=== PATIENT | male | born 1985 | race Two or more races ===

== ENCOUNTER 2024-06-29 06:41 | Emergency (ER) | payer OTHER, SELFPAY ==
[2024-06-29 06:42] VITALS: PULSE 70; RESP 20; O2SAT 98; BMI 33.2
[2024-06-29 06:50] VITALS: BP 132/89; PULSE 71; RESP 18; TEMP 36.5; O2SAT 96
--- NOTE | 2024-06-29 07:09 | XR_ITS ---
Examination: CT abdomen and pelvis without contrast. Coronal 3-D reconstructions. Sagittal 2-D reconstructions. Date and time of exam:June 29, 2024 0734 hours INDICATIONS: Onset bilateral flank pain with hematuria beginning 15 days ago CTDI: vol (mGy): 8.65 DLP: (mGycm): 503 Technique: Axial images of the abdomen have been obtained, 3 mm slice thickness Intravenous contrast material has not been administered. Low dose protocols were performed. One or more of the following dose reduction techniques were used; automated exposure control, adjustment of the mA and/or KV according to patient size, use of iterative reconstruction technique. Findings: No focal liver or splenic lesions No gallstones No pancreatic or adrenal mass Mild right hydronephrosis secondary to 4.6 mm proximal right ureteral calculus Normal appendix Aorta normal size No bowel obstruction or diverticulitis No bladder mass or bladder is contracted Intact osseous structures IMPRESSION: Mild right hydronephrosis secondary to 4.6 mm proximal right ureteral calculus
--- NOTE | 2024-06-29 07:10 | PD.EDRME ---
Rapid Medical Screening Exam RME Arrival date/time: 06/29/24 06:41 This is a 38-year-old male presents to the emergency department with complaints of bilateral flank pain. Recently treated with antibiotics for possible UTI. I have greeted and performed a focused initial assessment of this patient. Initial appropriate labs ordered at this time. A comprehensive ED assessment and evaluation of the patient and analysis of all test and completion of medical decision making process will be conducted by additional ED provider. Chief Complaint: Back Pain/Injury Time Seen by Provider: 06/29/24 06:49 Vital signs: Vital Signs Temperature 97.7 F 06/29/24 06:50 Pulse Rate 71 06/29/24 06:50 Respiratory Rate 18 06/29/24 06:50 Blood Pressure 132/89 H 06/29/24 06:50 Pulse Oximetry (%) 96 06/29/24 06:50 Oxygen Delivery Method Room Air 06/29/24 06:50
--- NOTE | 2024-06-29 07:20 | PD.EDABDPN ---
ED Abdominal Pain RME/HPI General Chief Complaint: Back Pain/Injury Stated complaint: RIGHT SIDED FLANK/BACK PAIN Time seen by provider: 06/29/24 06:49 Arrival date/time: 06/29/24 06:41 RME / HPI RME / HPI narrative: 06/29/24 06:41 This is a 38-year-old male unknown case of any medical condition presented to the ED due to sharp flank pain on the right side started this morning awaking her from sleep. Patient reported that it is associated with nausea and vomiting and bloody urine. Patient reported also he had similar pain on the other side. Of note recently the patient was treated for UTI 15 days ago. Patient denied any fever or chills and denied any other symptoms. Related Data Home Medications ?Medication ?Instructions ?Recorded ?Confirmed melatonin 3 mg tablet 3 mg PO HS #0 tabs 08/03/16 04/15/18 Previous Rx's ?Medication ?Instructions ?Recorded diphenhydramine HCl 25 mg capsule 25 mg PO TID #14 caps 04/15/18 (Benadryl) ibuprofen 400 mg tablet 400 mg PO TID PRN pain 5 days #15 06/29/24 tabs tamsulosin 0.4 mg capsule (Flomax) 0.4 mg PO QDAY 1 week #7 caps 06/29/24 Allergies Allergy/AdvReac Type Severity Reaction Status Date / Time No Known Allergies Allergy Verified 06/29/24 06:44 ED Exam Narrative Physical exam: GEN: AOx3, in agonizing pain, able to speak full sentences HEENT: NC/AC, PERRLA, oral mucosa moist, neck supple CVS: RRR, S1-S2 present, no murmurs appreciated RESP: CTAB GI: Soft with spontaneous guarding on the right side.,non distended, non tender, NBS MSK: able to move all 4 limbs, no lower extremity edema SKIN: warm and dry 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 Course Quality Measures none Orders Category Date Time Status Insert IV NOW Care 06/29/24 07:[address] abdomen pelvis wo con Stat Exams 06/29/24 07:09 Completed CBC Stat Lab 06/29/24 07:24 Completed CMP [Comprehensive Metabolic Panel] Stat Lab 06/29/24 07:24 Completed Lipase Stat Lab 06/29/24 07:24 Completed Urinalysis Stat Lab 06/29/24 07:12 Completed Urine Culture Stat Lab 06/29/24 07:12 Received Ketorolac Inj [Toradol Inj] Med 06/29/24 07:09 Discontinued 30 mg IVP X1 ONE Morphine Inj Med 06/29/24 07:24 Discontinued 2 mg IVP X1 ONE SODIUM CHLORIDE 0.9% @ Wide Open(1,000ml) Med 06/29/24 09:01 Ordered Sodium Chloride 0.9% 1000 ml [Ns] 1,000 ml IV 999 mls/hr Vital Signs Vital signs: Vital Signs Temperature 97.7 F 06/29/24 06:50 Pulse Rate 71 06/29/24 06:50 Respiratory Rate 18 06/29/24 06:50 Blood Pressure 132/89 H 06/29/24 06:50 Pulse Oximetry (%) 96 06/29/24 06:50 Oxygen Delivery Method Room Air 06/29/24 06:50 Abdominal Pain MDM MDM Narrative MDM Narrative:: On evaluation patient was found to have normal vital signs, CT scan showed 4.6 right sided ureteral stone at the proximal part with mild hydronephrosis. WBC of 11.6, however patient denied any fever or chills. Urine analysis showed 1660 RBCs but no blood or bacteria pain was controlled with ketorolac 30 mg. Will discharge the patient on Motrin, Flomax, and increased fluid oral intake and asked the patient to follow-up in outpatient settings with a urologist as we do not have urologist on-call. Patient data External records reviewed:: [facility] previous records Clinical information provided by:: patient Social determinants that could affect healthcare access:: none Patient has the following chronic illnesses:: None How is presenting disease/condition affected by chronic disease/condition?: no chronic disease Evaluation data The following diagnostics were reviewed and interpreted by me:: lab results, radiology exam(s) and EKG tracing(s) Lab and/or radiology exams considered but not ordered:: None Interpretation Summary: Right ureteral stones, with mild hydronephrosis Medications / Prescriptions Medications or Prescriptions considered but not ordered:: None Medication administrations:: Medication Administration History Discontinued Medications Ketorolac Tromethamine (Ketorolac Inj 30 Mg/Ml Vial) 30 mg IVP X1 ONE Stop: 06/29/24 07:10 Last Admin: 06/29/24 08:10 Dose: 30 mg Documented By: DEANNA Morphine Sulfate (Morphine Sulf Inj 10 Mg/Ml Vial) 2 mg IVP X1 ONE Stop: 06/29/24 07:25 As above F given Consultations Consultation(s) initiated? (list below): No Diagnosis Differential diagnosis abdominal pain: calculus of kidney Most likely diagnosis given after review of the tests above:: Right ureteral stones Admission Indicated Admission indicated?: not indicated Admission Request Was there a request for admission?: No Disposition Plan Disposition Plan: Discharge Discharge Attestation Discharge Attestation: The patient and all family members were given an opportunity to ask questions and understood the discharge instructions. Discharge instructions specifically effects, indications for sooner follow up or return to the emergency department, and the expected course of current diagnosis. Patient condition: Stable Discharge Plan Plan Patient Disposition: HOME (Self Care) Patient condition on transfer: Stable Health Concerns: Follow-up with your primary care physician within 3 days of discharge for referral to urologist for definitive treatment Use ibuprofen as needed 3 times a day for pain If you develop fever, chills please return to the emergency as soon as possible Prescriptions/Referrals Prescriptions/Med Rec: New tamsulosin [Flomax] 0.4 mg capsule 0.4 mg PO QDAY 7 Days Qty: 7 0RF ibuprofen 400 mg tablet 400 mg PO TID PRN (Reason: pain) 5 Days Qty: 15 0RF No Action melatonin 3 MG tablet 3 mg PO HS Qty: 0 diphenhydramine HCl [Benadryl] 25 mg capsule 25 mg PO TID Qty: 14 0RF Rx Instructions: take one tab and then in one half hour may repeat with another 25 mg po Ref[facility]: Benji Dos Santos[facility] [Primary Care Provider] - In 1 week Problem List Clinical Impression: Renal colic Patient/Caregiver Discharge Instructions Education Materials: Anatomy of the Male Urinary Tract, ED Kidney Stone w/ Colic Print Language: French Stand Alone Forms: Kell Award Info., Patient Portal Info Letter
[2024-06-29 07:26] LABS: Collection Type, Urine Clean Catch; Squamous Epithelial Cell,Urine 0 /hpf (0-5)
[2024-06-29 07:35] LABS: Basophils # (Auto) 0.1 Thou/mm3 (0.0-0.2); Basophils % (Auto) 0 % (0-2.5); Eosinophils # (Auto) 0.1 Thou/mm3 (0.0-0.5); Eosinophils % (Auto) 1 % (0-10); Hematocrit 37.4 % (41.0-53.0); Hemoglobin 12.7 g/dL (13.5-16.0); Immature Granulocytes % (Auto) 1 % (0-0); Immature Granulocytes Auto 0.09 Thou/mm3 (0.00-0.00); Lymphocytes # (Auto) 1.5 Thou/mm3 (1.0-4.8); Lymphocytes % (Auto) 13 % (10-50); Mean Corpuscular Hemoglobin 29.4 pg (25.0-35.0); Mean Corpuscular Volume 87 fL (80-100); Monocytes # (Auto) 0.8 Thou/mm3 (0.0-0.8); Monocytes % (Auto) 7 % (0-12); Neutrophils # (Auto) 8.9 Thou/mm3 (1.8-7.7); Neutrophils % (Auto) 78 % (37-80); Nucleated Red Blood Cell % 0 /100 WBC (0); Platelet Count 240 Thou/mm3 (140-440); Red Blood Count 4.32 Miln/mm3 (4.50-5.90); White Blood Count 11.4 Thou/mm3 (3.8-10.6)
[2024-06-29 07:44] LABS: Bilirubin,Urine Negative (Negative); Blood,Urine 3+ (Negative); Color,Urine Yellow (Lt Yel-Yel); Glucose, Urine Negative (Negative); Ketones,Urine Negative (Negative); Leukocyte Esterase,Urine Negative (Negative); Nitrite,Urine Negative (Negative); Protein,Urine 1+ (Neg - Trace); RBC,Urine 1660 /hpf (0-3); Specific Gravity,Urine 1.031 (1.001-1.035); Urobilinogen,Urine Negative mg/dL (0.0-1.0); WBC,Urine 1 /hpf (0-5)
[2024-06-29 07:47] LABS: Alanine Aminotransferase 21 U/L (10-49); Albumin, Serum 4.4 gm/dL (3.5-5.0); Albumin/Globulin Ratio 1.6 (1.2-2.2); Alkaline Phosphatase 91 U/L (46-116); Anion Gap 6 (7-16); Aspartate Amino Transferase 19 U/L (0-34); BUN/Creatinine Ratio 19 Ratio (12-20); Bilirubin,Total 0.3 mg/dL (0.3-1.2); Blood Urea Nitrogen 17 mg/dL (9-23); Calcium 9.1 mg/dL (8.3-10.6); Calcium (Corrected) 9.1 mg/dL (8.5-10.1); Carbon Dioxide 27.4 mMol/L (20.0-31.0); Chloride 106 mMol/L (98-107); Creatinine (Component) 0.9 mg/dL (0.6-1.3); Globulin 2.8 gm/dL (2.3-3.5); Glucose 127 mg/dL (74-106); Lipase 32 U/L (12-53); Osmolality,Calculated 281 (275-295); Potassium 3.5 mMol/L (3.4-5.1); Sodium 139 mMol/L (136-145); Total Protein 7.2 gm/dL (5.7-8.2); eGFR > 60 See Note
[2024-06-29 08:04] LABS: Clarity,Urine Hazy (Clear/Hazy)
[2024-06-29] MEDS: KETOROLAC INJ 30 MG/ML VIAL IVP (08:10)
[2024-06-29 08:35] VITALS: BP 141/99; PULSE 63; RESP 20; TEMP 36.6; O2SAT 99
[2024-06-29 08:49] VITALS: BP 141/99; PULSE 63; RESP 16; TEMP 36.6; O2SAT 99
[2024-06-29 09:55] VITALS: BP 117/78; PULSE 67; RESP 14; TEMP 36.6; O2SAT 100
[2024-06-29] MEDS: SODIUM CHLORIDE 0.9% 1000 ML 1,000 ML 999 ML IV (10:29)
[2024-06-29] MEDS: IBUPROFEN TAB 400 MG TABLET PO (10:30)
--- NOTE | 2024-06-29 10:33 | PC.NURSE ---
Pt refused morphine. Pt in recovery for adiction,
== END 2024-06-29 10:40 | disposition home or self-care (01) ==
PROVIDERS: Nurse Practitioner Primary Care; Emergency Provider Emergency Medicine; PCP Family Medicine
DX: N13.2 Hydronephrosis with renal and ureteral calculous obstruction (principal)
CPT/HCPCS: 36415; 74176; 80053; 81001; 83690; 85025; 87086; 99284; J1885; J7030; A9270

== ENCOUNTER → 2024-09-21 | Outpatient (CLI) | payer OTHER, SELFPAY ==
--- NOTE | 2024-09-21 10:45 | XR_ITS ---
Examination: Abdomen AP single view Technique: AP portable supine abdomen, single view Exam date and time: September 21, 2024 11:20 AM INDICATIONS: Right flank pain 3 months FINDINGS: Moderate stool overlying the kidneys. No renal or ureteral calculi noted IMPRESSION: No renal or ureteral calculi noted
== END | disposition home or self-care (01) ==
PROVIDERS: PCP Nurse Practitioner Family; Referring Provider Surgery; Visit Provider Surgery
DX: N20.1 Calculus of ureter (principal)
CPT/HCPCS: 74018

== ENCOUNTER → 2024-12-26 | Outpatient (CLI) | payer OTHER, SELFPAY ==
--- NOTE | 2024-12-26 08:06 | XR_ITS ---
Examination: Abdomen AP single view Technique: AP portable supine abdomen, single view Exam date and time: December 26, 2024 0814 hours INDICATIONS: History flank pain kidney stones FINDINGS: Abundant stool overlies the right kidney No renal or ureteral calculi IMPRESSION: No renal or ureteral calculi
== END | disposition home or self-care (01) ==
LOC: CDIM 07:15
PROVIDERS: PCP Nurse Practitioner Family; Referring Provider Surgery; Visit Provider Surgery
DX: R10.9 Unspecified abdominal pain (principal)
CPT/HCPCS: 74018

== ENCOUNTER 2024-12-30 20:20 | Emergency (ER) | payer OTHER, SELFPAY ==
[2024-12-30 20:22] VITALS: PULSE 59; RESP 18; O2SAT 98; BMI 32.1
[2024-12-30 20:33] VITALS: BP 133/88; PULSE 87; RESP 20; TEMP 37.1; O2SAT 99
--- NOTE | 2024-12-30 20:53 | XR_ITS ---
Examination: CT abdomen and pelvis without contrast. Coronal 3-D reconstructions. Sagittal 2-D reconstructions. Date and time of exam:December 30, 2024 2138 hours Comparison June 29, 2024 INDICATIONS: Flank pain beginning 3 hours ago history kidney stones CTDI: vol (mGy): 10.7 DLP: (mGycm): 616 Technique: Axial images of the abdomen have been obtained, 3 mm slice thickness Intravenous contrast material has not been administered. Low dose protocols were performed. One or more of the following dose reduction techniques were used; automated exposure control, adjustment of the mA and/or KV according to patient size, use of iterative reconstruction technique. Findings: No pancreatic or adrenal mass [id number] bilateral renal parenchymal scar formation Moderate right hydronephrosis secondary to 6 mm distal right ureteral calculus Normal appendix No bowel obstruction No diverticulitis No bladder mass or bladder calculi IMPRESSION: Moderate right hydronephrosis secondary to 6 mm distal right ureteral calculus
--- NOTE | 2024-12-30 20:54 | PD.EDRME ---
Rapid Medical Screening Exam RME Arrival date/time: 12/30/24 20:20 Chief Complaint: Back Pain/Injury Time Seen by Provider: 12/30/24 20:48 Vital signs: Vital Signs Temperature 98.8 F 12/30/24 20:33 Pulse Rate 87 12/30/24 20:33 Respiratory Rate 20 12/30/24 20:33 Blood Pressure 133/88 H 12/30/24 20:33 Pulse Oximetry (%) 99 12/30/24 20:33 Oxygen Delivery Method Room Air 12/30/24 20:33 RME Narrative: Right flank pain, nausea/vomiting today. History of kidney stones
--- NOTE | 2024-12-30 20:56 | EDNOTE_ITS ---
ED Back Injury Pain RME/HPI General Chief Complaint: Back Pain/Injury Stated Complaint: KIDNEY PAIN Time Seen by Provider: 12/30/24 20:48 Source: patient, RN notes reviewed and old records reviewed Arrival date/time: 12/30/24 20:20 Mode of arrival: ambulatory Limitations: no limitations RME / HPI RME / HPI Narrative: 39yom presents to ED for sudden onset of right flank pain radiating to RLQ that started today. History of kidney stones. Patient c/o nausea and vomiting. No fever, dysuria or hematuria reported. 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 Related Data Home Medications ?Medication ?Instructions ?Recorded ?Confirmed melatonin 3 mg tablet 3 mg PO HS #0 tabs 08/03/16 04/15/18 Previous Rx's ?Medication ?Instructions ?Recorded diphenhydramine HCl 25 mg capsule 25 mg PO TID #14 cap s 04/15/18 (Benadryl) ibuprofen 600 mg tablet 600 mg PO Q6H PRN pain #30 t abs 12/31/24 ondansetron 4 mg disintegrating 4 mg PO Q6H PRN nausea and 12/31/24 tablet vomiting #10 tabs tamsulosin 0.4 mg capsule (Flomax) 0.4 mg PO QDAY 10 d ays #10 caps 12/31/24 Allergies Allergy/AdvReac Type Severity Reaction Status Date / Time No Known Allergies Allergy Verified 06/29/24 06:44 Review of Systems Review of Systems Systems Reviewed: All systems reviewed, normal except as documented Constitutional Constitutional: Denies chills and Denies fever(s) Gastrointestinal Gastrointestinal: Reports abdominal pain, Denies loose stools, Reports nausea and Reports vomiting Genitourinary Genitourinary: Denies dysuria, Reports flank pain and Denies hematuria Past Medical History Past Medical History GASTROINTESTINAL: Positive Obesity GENITOURINARY: Positive Kidney Stones Social History SMOKING STATUS: Never smoker SUBSTANCE USE: does not use ALCOHOL: Never ED Exam General Limitations: Present no limitations General appearance: Present alert, in no apparent distress and other (Appears uncomfortable 2/2 pain) Head Head exam: Present atraumatic and normocephalic Eye Eye exam: Present normal appearance, PERRL and EOMI ENT ENT exam: Present normal exam and mucous membranes moist Neck Neck exam: Present normal inspection and full ROM Chest Chest inspection: Present normal inspection and symmetric chest wall rise Respiratory Respiratory exam: Present normal lung sounds bilaterally; Absent respiratory distress Cardiovascular Cardiovascular exam: Present regular rate and normal rhythm Abdominal Exam Abdominal exam: Present soft; Absent distention, tenderness, guarding or rebound Extremities Exam Extremities exam: Present normal inspection and full ROM Back Exam Back exam: Present CVA tenderness (R) Neurological Exam Neurological exam: Present alert and oriented X3 Psychiatric Psychiatric exam: Present normal affect and normal mood Skin Skin exam: Present warm, dry, intact and normal color Course Quality Measures none Orders Category Date Time Status CT abdomen pelvis wo con Stat Exams 12/30/24 20:53 Completed CBC Stat Lab 12/30/24 21:02 Completed CMP [Comprehensive Metabolic Panel] Stat Lab 12/30/24 21:02 Completed Lipase Stat Lab 12/30/24 21:02 Completed UA [Urinalysis] Stat Lab 12/30/24 22:05 Completed HYDROcodone/APAP 10/325 [Bittinger 10/325] Med 12/31/24 00:06 Discontinued 1 tab PO X1 ONE Ketorolac Inj [Toradol Inj] Med 12/30/24 20:53 Discontinued 30 mg IM X1 ONE Ondansetron Odt [Zofran Odt] Med 12/30/24 20:53 Discontinued 4 mg PO X1 ONE Vital Signs Vital signs: Vital Signs Temperature 98.8 F 12/30/24 20:33 Pulse Rate 87 12/30/24 20:33 Respiratory Rate 20 12/30/24 20:33 Blood Pressure 133/88 H 12/30/24 20:33 Pulse Oximetry (%) 99 12/30/24 20:33 Oxygen Delivery Method Room Air 12/30/24 20:33 Back Pain / Injury MDM Narrative MDM Narrative:: 39yom presents to ED for sudden onset of right flank pain radiating to RLQ that started today. History of kidney stones. Patient c/o nausea and vomiting. No fever, dysuria or hematuria reported. 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 Patient reassessed. Symptoms improved significantly after meds administered in ED. Tolerating po. 6mm right ureteral stone on CT. Encouraged adequate fluids, symptomatic treatment prn. Stable for discharge, RTED precautions given. Patient data External records reviewed:: [facility] previous records (06/29/24 ED visit for renal colic) Clinical information provided by:: patient Social determinants that could affect healthcare access:: none Patient has the following chronic illnesses:: kidney stones How is presenting disease/condition affected by chronic disease/condition?: caused by Evaluation data The following diagnostics were reviewed and interpreted by me:: lab results and radiology exam(s) Lab and/or radiology exams considered but not ordered:: none Interpretation Summary: Mild leukocytosis, WBC 13.9 UA + blood Creatinine wnl CT abd/pelvis: 6mm distal R ureteral stone Medications / Prescriptions Medications or Prescriptions considered but not ordered:: No antibiotics recommended at this time Medication administrations:: Medication Administration History Discontinued Medications Hydrocodone Bitart/Acetaminophen (Hydrocodone/Apap 10/325 Tab) 1 tab PO X1 ONE Stop: 12/31/24 00:07 Last Admin: 12/31/24 00:12 Dose: Not Given Documented By: LAILA Non-Admin Reason: Patient Refused Ketorolac Tromethamine (Ketorolac Inj 60 Mg/2 Ml Vial) 30 mg IM X1 ONE Stop: 12/30/24 20:54 Last Admin: 12/30/24 21:06 Dose: 30 mg Documented By: Ondansetron HCl (Ondansetron Odt 4 Mg Tabrap) 4 mg PO X1 ONE; Protocol Stop: 12/30/24 20:54 Last Admin: 12/30/24 21:05 Dose: 4 mg Documented By: Above medications administered in ED Consultations Consultation(s) initiated? (list below): No Diagnosis Differential diagnosis back pain/injury: other (Renal colic, kidney stone, UTI, pyelonephritis, lumbar strain, back pain) Most likely diagnosis given after review of the tests above:: Ureteral stone, renal colic Admission Indicated Admission indicated?: not indicated Admission Request Was there a request for admission?: No Disposition Plan Disposition Plan: Discharge Discharge Attestation Discharge Attestation: The patient and all family members were given an opportunity to ask questions and understood the discharge instructions. Discharge instructions specifically effects, indications for sooner follow up or return to the emergency department, and the expected course of current diagnosis. Patient condition: Stable Discharge Plan Plan Patient Disposition: HOME (Self Care) Patient condition on transfer: Stable Prescriptions/Referrals Prescriptions/Med Rec: New ondansetron 4 mg tablet,disintegrating 4 mg PO Q6H PRN (Reason: nausea and vomiting) Qty: 10 0RF tamsulosin [Flomax] 0.4 mg capsule 0.4 mg PO QDAY 10 Days Qty: 10 0RF ibuprofen 600 mg tablet 600 mg PO Q6H PRN (Reason: pain) Qty: 30 0RF No Action melatonin 3 MG tablet 3 mg PO HS Qty: 0 diphenhydramine HCl [Benadryl] 25 mg capsule 25 mg PO TID Qty: 14 0RF Rx Instructions: take one tab and then in one half hour may repeat with another 25 mg po Referrals: Felipa Graff [Primary Care Provider] - In 1 week Problem List Clinical Impression: Right ureteral stone, Renal colic on right side Patient/Caregiver Discharge Instructions Education Materials: ED Kidney Stone w/ Colic Print Language: Nepalese Stand Alone Forms: Kell Award Info., Work/School Release, Patient Portal Info Letter PA/DESK PENS 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
[2024-12-30] MEDS: ONDANSETRON ODT 4 MG TABRAP PO (21:05)
[2024-12-30] MEDS: KETOROLAC INJ 60 MG/2 ML VIAL 30 MG IM (21:06)
[2024-12-30 21:13] LABS: Basophils # (Auto) 0.1 Thou/mm3 (0.0-0.2); Basophils % (Auto) 0 % (0-2.5); Eosinophils % (Auto) 0 % (0-10); Hematocrit 37.7 % (41.0-53.0); Immature Granulocytes % (Auto) 1 % (0-0); Immature Granulocytes Auto 0.11 Thou/mm3 (0.00-0.00); Lymphocytes # (Auto) 1.1 Thou/mm3 (1.0-4.8); Lymphocytes % (Auto) 8 % (10-50); Mean Corpuscular HGB Conc 34.5 g/dl (31.0-37.0); Mean Corpuscular Hemoglobin 29.7 pg (25.0-35.0); Mean Corpuscular Volume 86 fL (80-100); Monocytes # (Auto) 0.7 Thou/mm3 (0.0-0.8); Monocytes % (Auto) 5 % (0-12); Neutrophils # (Auto) 11.9 Thou/mm3 (1.8-7.7); Neutrophils % (Auto) 86 % (37-80); Nucleated Red Blood Cell % 0 /100 WBC (0); Platelet Count 216 Thou/mm3 (140-440); RDW Standard Deviation 41.7 fL (35.1-43.9); Red Blood Count 4.37 Miln/mm3 (4.50-5.90); White Blood Count 13.9 Thou/mm3 (3.8-10.6)
[2024-12-30 21:35] LABS: Alanine Aminotransferase 26 U/L (10-49); Albumin, Serum 4.4 gm/dL (3.5-5.0); Albumin/Globulin Ratio 1.4 (1.2-2.2); Alkaline Phosphatase 83 U/L (46-116); Anion Gap 7 (7-16); Aspartate Amino Transferase 25 U/L (0-34); BUN/Creatinine Ratio 20 Ratio (12-20); Bilirubin,Total 0.3 mg/dL (0.3-1.2); Blood Urea Nitrogen 20 mg/dL (9-23); Calcium 8.9 mg/dL (8.3-10.6); Calcium (Corrected) 8.9 mg/dL (8.5-10.1); Carbon Dioxide 29.7 mMol/L (20.0-31.0); Chloride 105 mMol/L (98-107); Estimated Creatinine Clearance 111.3 mL/min (>60); Globulin 3.1 gm/dL (2.3-3.5); Glucose 114 mg/dL (74-106); Lipase 29 U/L (12-53); Osmolality,Calculated 286 (275-295); Potassium 4.2 mMol/L (3.4-5.1); Sodium 142 mMol/L (136-145); Total Protein 7.5 gm/dL (5.7-8.2); eGFR > 60 See Note
[2024-12-30 22:33] LABS: Collection Type, Urine Clean Catch; Squamous Epithelial Cell,Urine 0 /hpf (0-5)
[2024-12-30 22:55] LABS: Amorphous Crystals,Urine Present (Absent); Bilirubin,Urine Negative (Negative); Blood,Urine 2+ (Negative); Clarity,Urine Clear (Clear/Hazy); Color,Urine Yellow (Lt Yel-Yel); Glucose, Urine Negative (Negative); Ketones,Urine Trace (Negative); Leukocyte Esterase,Urine Positive (Negative); Nitrite,Urine Negative (Negative); PH,Urine 7.5 (5.0-7.0); Protein,Urine 1+ (Neg - Trace); RBC,Urine 97 /hpf (0-3); Specific Gravity,Urine 1.038 (1.001-1.035); WBC,Urine 5 /hpf (0-5)
== END 2024-12-31 00:29 | disposition home or self-care (01) ==
PROVIDERS: Physician Assistant; Emergency Provider Emergency Medicine; PCP Nurse Practitioner Family
DX: N20.2 Calculus of kidney with calculus of ureter (principal)
CPT/HCPCS: 36415; 74176; 80053; 81001; 83690; 85025; 96372; 99284; J1885; Q0162

== ENCOUNTER 2025-04-27 19:06 | Emergency (ER) | payer OTHER, SELFPAY ==
[2025-04-27 19:07] VITALS: BMI 32.6
[2025-04-27 19:35] VITALS: BP 125/86; PULSE 66; RESP 16; TEMP 37; O2SAT 99
--- NOTE | 2025-04-27 19:45 | XR_ITS ---
Examination: CT brain head without contrast. 2-D sagittal coronal reconstructions Date and time of exam:April 27, 2025, 1999 hrs. Indications: Head pressure 2 months, elevated prolactin levels CTDI: vol (mGy):5.0 DLP: (mGycm):1007 Technique: Multiple CT axial sections of the brain have been obtained, 5 mm slice thickness. Contrast has not been administered. 2-D sagittal, coronal reconstructions have been obtained Low dose protocols were performed. One or more of the following dose reduction techniques were used; automated exposure control, adjustment of the mA and/or KV according to patient size, use of iterative reconstruction technique. Findings: No significant ventricular enlargement. The pituitary is enlarged, extending suprasellar, cephalocaudad dimension 14 mm The pituitary extends (cavernous, coronal image 54, transverse dimension 22 mm Intra-axial or extra-axial hemorrhage density is not seen. No mass effect or midline shift Basal cisterns are not remarkable. Fourth ventricle is midline. Cranial vault intact. 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
--- NOTE | 2025-04-27 19:46 | PD.EDRME ---
Rapid Medical Screening Exam [facility] Arrival date/time: 04/27/25 19:06 39M with no significant PMH presents to ED with 2 months of head pressure. Patient did have outpatient labs done where prolactin levels were very high>2500. Patient has not had any head imaging. Chief Complaint: Headache Vital signs: Vital Signs Temperature 98.6 F 04/27/25 19:35 Pulse Rate 66 04/27/25 19:35 Respiratory Rate 16 04/27/25 19:35 Blood Pressure 125/86 H 04/27/25 19:35 Pulse Oximetry (%) 99 04/27/25 19:35 Oxygen Delivery Method Room Air 04/27/25 19:35
[2025-04-27 20:07] LABS: Collection Type, Urine Clean Catch; Squamous Epithelial Cell,Urine 0 /hpf (0-5)
[2025-04-27 20:08] LABS: Basophils # (Auto) 0.1 Thou/mm3 (0.0-0.2); Basophils % (Auto) 1 % (0-2.5); Eosinophils # (Auto) 0.2 Thou/mm3 (0.0-0.5); Eosinophils % (Auto) 2 % (0-10); Hematocrit 39.0 % (41.0-53.0); Hemoglobin 13.2 g/dL (13.5-16.0); Immature Granulocytes Auto 0.09 Thou/mm3 (0.00-0.00); Lymphocytes # (Auto) 2.1 Thou/mm3 (1.0-4.8); Lymphocytes % (Auto) 19 % (10-50); Mean Corpuscular HGB Conc 33.8 g/dl (31.0-37.0); Mean Corpuscular Hemoglobin 29.9 pg (25.0-35.0); Mean Corpuscular Volume 88 fL (80-100); Monocytes # (Auto) 0.8 Thou/mm3 (0.0-0.8); Monocytes % (Auto) 7 % (0-12); Neutrophils # (Auto) 7.7 Thou/mm3 (1.8-7.7); Neutrophils % (Auto) 71 % (37-80); Nucleated Red Blood Cell # 0.00 Thou/mm3 (0.00-0.00); Nucleated Red Blood Cell % 0 /100 WBC (0); Platelet Count 202 Thou/mm3 (140-440); RDW Standard Deviation 42.4 fL (35.1-43.9); Red Blood Count 4.42 Miln/mm3 (4.50-5.90); White Blood Count 10.9 Thou/mm3 (3.8-10.6)
[2025-04-27 20:19] LABS: Bilirubin,Urine Negative (Negative); Blood,Urine Negative (Negative); Clarity,Urine Clear (Clear/Hazy); Color,Urine Lt-Yellow (Lt Yel-Yel); Culture Indicated,Urine Not Indicated; Glucose, Urine Negative (Negative); Ketones,Urine Negative (Negative); Leukocyte Esterase,Urine Negative (Negative); Nitrite,Urine Negative (Negative); PH,Urine 6.0 (5.0-7.0); Protein,Urine Negative (Neg - Trace); RBC,Urine 4 /hpf (0-3); Specific Gravity,Urine 1.032 (1.001-1.035); Urobilinogen,Urine Negative mg/dL (0.0-1.0); WBC,Urine 1 /hpf (0-5)
[2025-04-27 20:23] LABS: Amphetamine/Methamp Scrn,U Negative (Negative); Barbiturate Screen,Urine Negative (Negative); Benzodiazepines Screen,Urine Negative (Negative); Benzoylecgonine Screen, Ur Negative (Negative); Fentanyl Screen,Urine Negative (Negative); Opiate Screen,Urine Negative (Negative); THC Screen,Urine Negative (Negative)
[2025-04-27 20:27] LABS: Alanine Aminotransferase 33 U/L (10-49); Albumin, Serum 4.6 gm/dL (3.5-5.0); Albumin/Globulin Ratio 1.8 (1.2-2.2); Alkaline Phosphatase 92 U/L (46-116); Anion Gap 9 (7-16); Aspartate Amino Transferase 28 U/L (0-34); BUN/Creatinine Ratio 20 Ratio (12-20); Bilirubin,Total 0.3 mg/dL (0.3-1.2); Blood Urea Nitrogen 16 mg/dL (9-23); Calcium 10.1 mg/dL (8.3-10.6); Calcium (Corrected) 10.1 mg/dL (8.5-10.1); Carbon Dioxide 27.9 mMol/L (20.0-31.0); Chloride 106 mMol/L (98-107); Creatinine (Component) 0.8 mg/dL (0.6-1.3); Estimated Creatinine Clearance 140.4 mL/min (>60); Free T4 (Free Thyroxine) 1.00 ng/dL (0.89-1.76); Globulin 2.6 gm/dL (2.3-3.5); Glucose 80 mg/dL (74-106); Osmolality,Calculated 285 (275-295); Potassium 3.8 mMol/L (3.4-5.1); Sodium 143 mMol/L (136-145); Thyroid Stimulating Hormone 1.29 uIU/mL (0.55-4.78); Total Protein 7.2 gm/dL (5.7-8.2); eGFR > 60 See Note
--- NOTE | 2025-04-27 20:40 | EDNOTE_ITS ---
ED Headache RME/HPI General Chief Complaint: Headache Stated Complaint: PRESSURE IN HEAD Arrival date/time: 04/27/25 19:06 RME / HPI RME / HPI Narrative: 04/27/25 19:06 39M with no significant PMH presents to ED with 2 months of head pressure. Patient did have outpatient labs done where prolactin levels were very high>2500. Patient has not had any head imaging. DR. MUSE MAIN ED EVALUATION: Patient with previously confirmed elevated prolactin levels presenting with ongoing primarily frontal retro-orbital headache of increasing frequency of several weeks duration. Denies visual disturbances or lateralized motor or sensory deficits. Headache is pressure-like and decreased with exacerbation. Denies associated photo sensitivity, nausea, vomiting, and neck stiffness. PMH is unremarkable for HTN and DM. PSHx is unremarkable. Social history, nondrinker, no tobacco, and no illicit drug use. Related Data Home Medications ?Medication ?Instructions ?Recorded ?Confirmed melatonin 3 mg tablet 3 mg PO HS #0 tabs 08/03/16 04/15/18 Previous Rx's ?Medication ?Instructions ?Recorded diphenhydramine HCl 25 mg capsule 25 mg PO TID #14 cap s 04/15/18 (Benadryl) ibuprofen 600 mg tablet 600 mg PO Q6H PRN pain #30 t abs 12/31/24 ondansetron 4 mg disintegrating 4 mg PO Q6H PRN nausea and 12/31/24 tablet vomiting #10 tabs Allergies Allergy/AdvReac Type Severity Reaction Status Date / Time No Known Allergies Allergy Verified 06/29/24 06:44 Review of Systems Review of Systems Systems Reviewed: All systems reviewed, normal except as documented Past Medical History Past Medical History GENITOURINARY: Positive Kidney Stones ED Exam Narrative Physical exam: GEN. APPEARANCE: The patient is alert awake oriented X-3, GCS 15, in no distress, lying down comfortably, does not look ill/toxic. Patient has good eye contact. Patient is cooperative. VITALS: All vitals were reviewed and the pulse ox is 99% on room air which is normal according to my interpretation. HEENT: Normocephalic, atraumatic. Pupils are equal and reactive, no niastagmus, no visual field cut, optic discs are sharp. Oral mucosa is moist. Patent Nares NECK: Supple, nontender, no thyromegaly, no meningismus, no JVD, no step offs CHEST: Symmetrical, atraumatic, and with equal expansion , Nontender on palpation no deformity and no crepitus. CARDIOVASCULAR: Heart regular rhythm no murmur or gallop rub or extra beats. LUNGS: Clear to auscultation bilaterally with symmetrical chest rise. No laboring tachypnea or wheezing. No intercostal subcostal retraction. No rales and no rhonchi. ABDOMEN: Soft, flat, nontender to palpation, no guarding or rebound tenderness. There are no abnormal masses palpated. Active and normal bowel sounds. EXTREMITIES: Nontender. No edema. No cyanosis. Patient is able to move all 4 extremities well, with full ROM and good CSM. SKIN: Warm and dry, no jaundice or rashes noted. MUSCULOSKELETAL: No lubar or midline bony tenderness. There is no CVA tenderness. No paraspinal muscle spasm or tenderness. NEURO: Patient is FIORE x 4, Cranial nerves II through XII grossly intact. There is no focal neurologic deficits noted. GCS is 15, PNS and RELIEF SALESPERSON appear grossly intact. Gait normal. PSYCHIATRIC: Patient is in normal mood and affect, cooperative, no SI or HI or hallucinations. Course Quality Measures none Orders Category Date Time Status EKG (ED ONLY) *Do not use* NOW Care 04/27/25 21:[address] head/brain wo con Stat Exams 04/27/25 19:45 Completed EKG (ED Only) Stat Exams 04/27/25 21:33 Ordered CBC Stat Lab 04/27/25 19:51 Completed CMP [Comprehensive Metabolic Panel] Stat Lab 04/27/25 19:51 Completed Drug Screen,Urine Stat Lab 04/27/25 19:56 Completed Free T4 (Free Thyroxine) Stat Lab 04/27/25 19:51 Completed TSH [Thyroid Stimulating Hormone] Stat Lab 04/27/25 19:51 Completed Urinalysis, C/S if Indicated Stat Lab 04/27/25 19:56 Completed Vital Signs Vital signs: Vital Signs Temperature 98.6 F 04/27/25 19:35 Pulse Rate 66 04/27/25 19:35 Respiratory Rate 16 04/27/25 19:35 Blood Pressure 125/86 H 04/27/25 19:35 Pulse Oximetry (%) 99 04/27/25 19:35 Oxygen Delivery Method Room Air 04/27/25 19:35 Headache MDM Narrative MDM Narrative:: Scribe Attestation: I, Keeley Duong, am scribing for and in the presence of Dr. Muse. Provider Notation: Although this document has been carefully reviewed, there may still be some phonetic and other typographical errors. These errors are purely grammatical due to imperfections in the software program and should not be construed in any way to compromise the substance of the patient's medical care during this visit. Patient with previously confirmed elevated prolactin levels presenting with ongoing primarily frontal retro-orbital headache of increasing frequency of several weeks duration. Denies visual disturbances or lateralized motor or sensory deficits. Please see PE findings. Laboratory markers include CBC, serum chemistries, UA, and tox screen are exceptionally unremarkable. Brain CT how ever, demonstrates evidence of a pituitary macroandenoma, which is extending into supercellar region no hemorrhage noted. No mass effect. Case dsiscussed conjointly with telle-neurologist physician who recommends outpatient F/U for MRI pituitary protocol and close ENT F/U. Clinical impression includes pituitary macroadenoma. Patient data External records reviewed:: [facility] previous records (Reviewed prior ED records from 12/30/24. Patient was seen for Renal colic on right side.) Clinical information provided by:: patient Social determinants that could affect healthcare access:: none Patient has the following chronic illnesses:: Kidney stones How is presenting disease/condition affected by chronic disease/condition?: uneffected by Evaluation data The following diagnostics were reviewed and interpreted by me:: lab results, radiology exam(s) and EKG tracing(s) (EKG at 21:06 shows normal sinus rhythm at 71, normal axis, no ectopy, no signs of acute ischemia, per my interpretation.) Lab and/or radiology exams considered but not ordered:: None Interpretation Summary: RADIOLOGY Head/Brain CT: Findings: No significant ventricular enlargement. The pituitary is enlarged, extending suprasellar, cephalocaudad dimension 14 mm The pituitary extends (cavernous, coronal image 54, transverse dimension 22 mm Intra-axial or extra-axial hemorrhage density is not seen. No mass effect or midline shift Basal cisterns are not remarkable. Fourth ventricle is midline. Cranial vault intact. Impression: Mass arising in the pituitary extending into the left para cavernous region, differential would include pituitary macroadenoma Recommend brain MRI follow-up pre and postcontrast Medications / Prescriptions Medications or Prescriptions considered but not ordered:: None Medication administrations:: See above if any Consultations Consultation(s) initiated? (list below): Yes Consultation #1 (Physician, Specialty, Details): Case discussed conjointly with telle-neurologist physician who recommends outpatient F/U for MRI pituitary protocol and close ENT F/U. Time: 21:06 Diagnosis Differential diagnosis headache: migraine, tension headache, subarachnoid hemorrhage, headache, meningitis and other (Brain mass) Most likely diagnosis given after review of the tests above:: Pituitary macroadenoma Admission Indicated Admission indicated?: not indicated Explain why admission is indicated or not indicated:: Patient does not meet admission criteria Admission Request Was there a request for admission?: No Disposition Plan Disposition Plan: Discharge Discharge Attestation Discharge Attestation: The patient and all family members were given an opportunity to ask questions and understood the discharge instructions. Discharge instructions specifically effects, indications for sooner follow up or return to the emergency department, and the expected course of current diagnosis. Patient condition: Stable Discharge Plan Plan Patient Disposition: HOME (Self Care) Discharge Disposition comment: STABLE Prescriptions/Referrals Prescriptions/Med Rec: No Action melatonin 3 MG tablet 3 mg PO HS Qty: 0 diphenhydramine HCl [Benadryl] 25 mg capsule 25 mg PO TID Qty: 14 0RF Rx Instructions: take one tab and then in one half hour may repeat with another 25 mg po ondansetron 4 mg tablet,disintegrating 4 mg PO Q6H PRN (Reason: nausea and vomiting) Qty: 10 0RF ibuprofen 600 mg tablet 600 mg PO Q6H PRN (Reason: pain) Qty: 30 0RF Referrals: No Primary/Family,Physician [Primary Care Provider] - In 1 week Problem List 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 for MRI of the brain with pituitary protocol. Print Language: Bruneian Stand Alone Forms: Kell Award Info., Patient Portal Info Letter
--- NOTE | 2025-04-27 21:00 | PC.NURSE ---
Case Consult 04/27/2025 21:00:17 [facility] Case # [id number] has been created.
--- NOTE | 2025-04-27 22:21 | ESCONSULT_ITS ---
Tele Neuro Consultation Consultation Date 04/27/25 Most Recent Vital Signs Last Vital Signs Temp 98.6 F 04/27/25 19:35 Pulse 66 04/27/25 19:35 Resp 16 04/27/25 19:35 BP 125/86 H 04/27/25 19:35 Pulse Ox 99 04/27/25 19:35 O2 Del Method Room Air 04/27/25 19:35 Consultation Narrative [facility] TeleNeurology Consult Services Stat Consult Patient Name: Jorge Brand Date of : 1985 Identification Number: Date of Service: 04/27/2025 21:00:17 Diagnosis: ? G93.89 - Brain mass Impression 39 yo M who presents due to headaches for the past few months and was seen recently at a clinic where his prolactin level was noted to be severely elevated. Neurologic exam is normal. CTH shows mass arising in the pituitary and extending into the left para cavernous region, on my review likely consistent with a pituitary macroadenoma. Patient is neurologically intact and clinically stable, it would be reasonable to obtain outpatient ENT evaluation for consideration of MRI Brain w/wo contrast and/or MRI pituitary w/wo contrast. Will defer further workup and management to ENT given this is not a primary neurologic process. Disposition: outpatient ENT followup, discussed with ED MD who is assisting in arranging this within the next few weeks Metrics: Dispatch Time: 04/27/2025 21:00:17 Callback Response Time: 04/27/2025 21:05:27 Primary Provider Notified of Diagnostic Impression and Management Plan on: 04/27/2025 22:03:[address] Head - Mass arising in the pituitary extending into the left para cavernous region, differential would include pituitary macroadenoma Recommend brain MRI follow-up pre and post contrast Chief Complaint: headaches, confusion History of Present Illness: Patient is a 39 year old Male. Patient presented to an outside clinic due to headaches and was found to have an elevated prolactin level > 2500. He has been having right sided headaches mainly retro-orbital since October, but they have worsened in the past few days. States headaches will worsen whenever he has a meal. Denies any vision changes. Denies any speech changes, focal weakness, focal numbness. Past Medical History: Other PMH: no prior PMHx Medications: No Anticoagulant use No Antiplatelet use Reviewed EMR for current medications Allergies: Reviewed Social History: Smoking: No Alcohol Use: No Drug Use: No Family History: There is no family history of premature cerebrovascular disease pertinent to this consultation ROS : 14 Points Review of Systems was performed and was negative except mentioned in HPI. Past Surgical History: There Is No Surgical History Contributory To Today?s Visit Examination: BP(125/86), Pulse(66), Neuro Exam: General: Alert,Awake, Oriented to Time, Place, Person Speech: Fluent: Language: Intact: Face: Symmetric: Facial Sensation: Intact: Visual Vivas: Intact: Extraocular Movements: Intact: Motor Exam: No Drift: Sensation: Intact: Coordination: Intact: Spoke with : Dr. Zuleta This consult was conducted in real time using interactive audio and video technology. Patient was informed of the technology being used for this visit and agreed to proceed. Patient located in hospital and provider located at home/office setting. Patient is being evaluated for possible acute neurologic impairment and high probability of imminent or life - threatening deterioration.I spent total of 35 minutes providing care to this patient, including time for face to face visit via telemedicine, review of medical records, imaging studies and discussion of findings with providers, the patient and / or family. Dr Geronimo Hallman [facility] For Inpatient follow-up with [facility] physician please call [facility] at . As we are not an outpatient service for any post hospital discharge needs please contact the hospital for assistance. If you have any questions for the [facility] physicians or need to reconsult for clinical or diagnostic changes please contact us via [facility] at . Signature : Geronimo Hallman
[2025-04-27 22:27] VITALS: BP 127/91; PULSE 68; RESP 18; O2SAT 99
== END 2025-04-27 22:29 | disposition home or self-care (01) ==
PROVIDERS: Physician Assistant; Emergency Provider Emergency Medicine
DX: D35.2 Benign neoplasm of pituitary gland (principal)
CPT/HCPCS: 36415; 70450; 80053; 80307; 81001; 84439; 84443; 85025; 93005; 99284

== ENCOUNTER 2025-04-28 07:32 | Emergency (ER) | payer BC, SELFPAY ==
--- NOTE | 2025-04-28 | XR_ITS ---
Examination: MRI of brain without intravenous contrast. MRI brain with intravenous contrast. Date and time of exam:April 28, 2025 0917 hrs. Indications: Head pressure headaches beginning 3 days ago, CT brain scan 04/27/2025 mass in the region of the pituitary Technique: Multiple axial and sagittal images of the brain to been obtained. Siemens high-resolution 1.52 Hailey short bore scanner utilized. Sagittal sections, T1 weighted images, TR 500, TE 14, are performed. Axial sections proton-density and T2-weighted images have been obtained. Inversion recovery axial images, TR 9260, TE 111, TR 2500. Diffusion weighted images, axial sections, TR 4800, TE 128, B value 1000. Axial sections, ADC map, TR 4800, TE 128. Axial and coronal images were also obtained post 19 cc gadolinium administered intravenously. Findings:: Irregular enhancing mass in the pituitary, coronal image 7, sagittal image 7 axial image 10, measuring cephalocaudad dimension 17 mm, mediolateral dimension 26 mm, anterior posterior dimension 15 mm This mass extends above the margin of the supraclinoid internal carotid artery on the left The mass distorts the optic chiasm and shifts the infundibular stalk The ventricles are not enlarged. No midline shift of the ventricles noted No effacement cortical sulcal markings Diffusion-weighted images demonstrate no acute infarct FLAIR images demonstrate no punctate foci increased signal in the white matter Impression: 17 x 26 x 15 mm mass in the pituitary most consistent with pituitary macroadenoma
[2025-04-28 07:39] VITALS: BP 130/88; PULSE 71; RESP 18; TEMP 36.4; O2SAT 96
--- NOTE | 2025-04-28 07:56 | EDNOTE_ITS ---
<Statement entered by Marli St MD - 04/28/25 14:58> As co-signing physician, I was present and available for consult prn. I concur with the plan and care as documented by the midlevel provider. ED Recheck Abnl Lab Rx-RME/HPI General Chief Complaint: Recheck/Abnormal Lab/Rx Stated Complaint: BACK FOR MRI Time Seen by Provider: 04/28/25 07:33 Arrival date/time: 04/28/25 07:32 Limitations: no limitations RME / HPI RME / HPI narrative: 39-year-old male here for persistent headache x 2months. Previously confirmed elevated prolactin levels presenting with ongoing primarily frontal retro- orbital headache of increasing frequency of several weeks duration. Denies visual disturbances or lateralized motor or sensory deficits. Headache is pressure-like and decreased with exacerbation. Denies associated photo sensitivity, nausea, vomiting, and neck stiffness. PMH is unremarkable for HTN and DM. PSHx is unremarkable. Social history, nondrinker, no tobacco, and no illicit drug use. Was seen yesterday, had CT scan showing pituitary adenoma. States was told would need MRI. Reports he was told should come back in the morning as there was no automotive exhaust emissions technician to perform the test. Patient has hard time following up outpatient and states now that is all he can think about and would like to have the test done while in the emergency department. Related Data Home Medications ?Medication ?Instructions ?Recorded ?Confirmed melatonin 3 mg tablet 3 mg PO HS #0 tabs 08/03/16 04/15/18 Previous Rx's ?Medication ?Instructions ?Recorded diphenhydramine HCl 25 mg capsule 25 mg PO TID #14 cap s 04/15/18 (Benadryl) ibuprofen 600 mg tablet 600 mg PO Q6H PRN pain #30 t abs 12/31/24 ondansetron 4 mg disintegrating 4 mg PO Q6H PRN nausea and 12/31/24 tablet vomiting #10 tabs Allergies Allergy/AdvReac Type Severity Reaction Status Date / Time No Known Allergies Allergy Verified 04/28/25 07:34 Review of Systems Review of Systems Systems Reviewed: All systems reviewed, normal except as documented Neurologic Neurologic: Reports as per HPI ED Exam General Limitations: Present no limitations General appearance: Present alert and in no apparent distress Head Head exam: Present atraumatic Eye Eye exam: Present normal appearance, PERRL and EOMI ENT ENT exam: Present normal exam, normal oropharynx and mucous membranes moist Neck Neck exam: Present normal inspection, full ROM and trachea midline Chest Chest inspection: Present normal inspection and symmetric chest wall rise Respiratory Respiratory exam: Present normal lung sounds bilaterally Cardiovascular Cardiovascular exam: Present regular rate, normal rhythm and normal heart sounds Abdominal Exam Abdominal exam: Present soft and normal bowel sounds Extremities Exam Extremities exam: Present normal inspection and full ROM Back Exam Back exam: Present normal inspection and full ROM Neurological Exam Neurological exam: Present alert, oriented X3 and CN II-XII intact Psychiatric Psychiatric exam: Present normal affect and normal mood Skin Skin exam: Present warm, dry, intact and normal color Course Quality Measures none Orders Category Date Time Status Insert IV NOW Care 04/28/25 07:55 Completed MRI Screening NOW Care 04/28/25 07:55 Completed MRI Screening NOW Care 04/28/25 07:55 Completed MR head/brain wo/w con Stat Exams 04/28/25 Completed Vital Signs Vital signs: Vital Signs Temperature 97.6 F 04/28/25 07:39 Pulse Rate 71 04/28/25 07:39 Respiratory Rate 18 04/28/25 07:39 Blood Pressure 130/88 H 04/28/25 07:39 Pulse Oximetry (%) 96 04/28/25 07:39 Oxygen Delivery Method Room Air 04/28/25 07:39 Recheck / Abnormal Lab / Rx MDM Narrative MDM Narrative:: 39-year-old male seen in the emergency department yesterday diagnosed with pituitary adenoma. Returning for MRI states having hard time getting things done outpatient. And worries due to persistent headaches for the last few weeks. Imaging today shows that the thought advised follow-up with PCP for referral to ENT return to ER symptoms worsen Patient data External records reviewed:: [facility] previous records Clinical information provided by:: patient Social determinants that could affect healthcare access:: other (specify) Patient has the following chronic illnesses:: Headaches How is presenting disease/condition affected by chronic disease/condition?: exacerbated by Evaluation data The following diagnostics were reviewed and interpreted by me:: lab results and radiology exam(s) Lab and/or radiology exams considered but not ordered:: All other labs and CT scan were ordered yesterday all imaging considered today was ordered Interpretation Summary: MRI of brain shows same pituitary adenoma on scan from yesterday Medications / Prescriptions Medications or Prescriptions considered but not ordered:: Consider daily medications for headache however should follow-up with PCP Medication administrations:: None Consultations Consultation(s) initiated? (list below): No Consultation #1 (Physician, Specialty, Details): pt had neurology consult yesterday, see note. no emergent interventions required today Diagnosis Recheck Differential Diagnosis: other (Brain lesion, stroke, pituitary lesion) Most likely diagnosis given after review of the tests above:: Pituitary adenoma Admission Indicated Admission indicated?: not indicated Admission Request Was there a request for admission?: No Disposition Plan Disposition Plan: Discharge Discharge Attestation Discharge Attestation: The patient and all family members were given an opportunity to ask questions and understood the discharge instructions. Discharge instructions specifically effects, indications for sooner follow up or return to the emergency department, and the expected course of current diagnosis. Patient condition: Stable Discharge Plan Plan Patient Disposition: HOME (Self Care) Discharge Disposition comment: f.u with pcp in 2-3days Prescriptions/Referrals Prescriptions/Med Rec: No Action melatonin 3 MG tablet 3 mg PO HS Qty: 0 diphenhydramine HCl [Benadryl] 25 mg capsule 25 mg PO TID Qty: 14 0RF Rx Instructions: take one tab and then in one half hour may repeat with another 25 mg po ondansetron 4 mg tablet,disintegrating 4 mg PO Q6H PRN (Reason: nausea and vomiting) Qty: 10 0RF ibuprofen 600 mg tablet 600 mg PO Q6H PRN (Reason: pain) Qty: 30 0RF Referrals: Benji Dos Santos([facility]MD [Primary Care Provider, Family Practice] - In 1 week Problem List Clinical Impression: Pituitary adenoma, Headache Patient/Caregiver Discharge Instructions Education Materials: ED Brain Tumor Print Language: Croatian Stand Alone Forms: Kell Award Info., Patient Portal Info Letter PA/MICROSYSTEMS ENGINEER Supervising Physician PA/CHERYL Supervising Physician: Dr. St
[2025-04-28 11:15] VITALS: BP 128/70; PULSE 68; RESP 16; TEMP 36.5; O2SAT 98
== END 2025-04-28 11:16 | disposition home or self-care (01) ==
PROVIDERS: Emergency Provider Emergency Medicine; PCP Family Medicine
DX: D35.2 Benign neoplasm of pituitary gland (principal)
CPT/HCPCS: 70553; 99284; A9577

== ENCOUNTER → 2025-05-28 | Outpatient (CLI) | payer BC, SELFPAY ==
[2025-05-28 09:02] LABS: Free T4 (Free Thyroxine) 1.20 ng/dL (0.89-1.76); Thyroid Stimulating Hormone 1.68 uIU/mL (0.55-4.78)
== END | disposition home or self-care (01) ==
PROVIDERS: PCP Student in an Organized Health Care Education/Training Program; Referring Provider Student in an Organized Health Care Education/Training Program; Visit Provider Student in an Organized Health Care Education/Training Program
DX: D35.2 Benign neoplasm of pituitary gland (principal)
CPT/HCPCS: 36415; 84439; 84443

== ENCOUNTER → 2025-07-10 | Outpatient (CLI) | payer BC, SELFPAY ==
[2025-07-10 10:13] LABS: Collection Type, Urine Clean Catch
[2025-07-10 10:46] LABS: Bilirubin,Urine Negative (Negative); Blood,Urine Negative (Negative); Clarity,Urine Clear (Clear/Hazy); Color,Urine Yellow (Lt Yel-Yel); Culture Indicated,Urine Not Indicated; Glucose, Urine Negative (Negative); Ketones,Urine Negative (Negative); Leukocyte Esterase,Urine Negative (Negative); Nitrite,Urine Negative (Negative); PH,Urine 6.5 (5.0-7.0); Protein,Urine Trace (Neg - Trace); RBC,Urine 4 /hpf (0-3); Specific Gravity,Urine 1.033 (1.001-1.035); Squamous Epithelial Cell,Urine < 1 /hpf (0-5); Urobilinogen,Urine Negative mg/dL (0.0-1.0); WBC,Urine 1 /hpf (0-5)
[2025-07-10 12:50] LABS: Follicle Stimulating Hormone 3.85 mIU/mL (See Note)
[2025-07-14 17:50] LABS: IGF-1 100 ng/mL (53-331)
[2025-07-16 07:09] LABS: ACTH, Plasma* 15 pg/mL (6-50); IGF-1 Z score Male -0.7 SD (-2.0 - +2.0); Luteinizing Hormone* 2.0 mIU/mL (1.5-9.3); Prolactin* 6.4 ng/mL (2.0-18.0)
== END | disposition home or self-care (01) ==
PROVIDERS: PCP Student in an Organized Health Care Education/Training Program; Visit Provider Nurse Practitioner Family
DX: D35.2 Benign neoplasm of pituitary gland (principal); R82.998 Other abnormal findings in urine
CPT/HCPCS: 36415; 81001; 82024; 83001; 83002; 84146; 84305

== ENCOUNTER → 2025-07-20 | Outpatient (BNVA) | payer BC, SELFPAY | END | disposition home or self-care (01) | PROVIDERS: PCP Nurse Practitioner Primary Care; Referring Provider Nurse Practitioner Primary Care; Visit Provider Nurse Practitioner Primary Care | DX: R30.0 Dysuria (principal) | CPT/HCPCS: 81001; 99204 ==

== ENCOUNTER → 2025-07-27 | Outpatient (BNVA) | payer BC, SELFPAY | END | disposition home or self-care (01) | PROVIDERS: PCP Nurse Practitioner Primary Care; Referring Provider Nurse Practitioner Primary Care; Visit Provider Nurse Practitioner Primary Care | DX: R30.0 Dysuria (principal) | CPT/HCPCS: 99212; G0463 ==